=== PATIENT | female | born 1965 | race Caucasian/White ===

== ENCOUNTER 2018-04-26 19:12 | Emergency (ER) | payer MEDICARE, MEDICAID ==
[~2018-04-26] VITALS: Ht 170.2 cm; Wt 92.7 kg
[~2018-04-26 19:12] MED LIST: CYCL-394 PO; DYR50C PO; FENO43CA5 PO; GABA-347 PO; HYDR-565 PO; LISI-600 PO; METH5TAB PO; PHEN-873 PO; POTA25PA2 PO; SIMV20TA5 PO; TRAZADONE PO
[2018-04-26 19:13] VITALS: BP 144/91
== END 2018-04-26 20:30 | disposition home or self-care (01) ==
LOC: ER 19:12
DX: M25.462 Effusion, left knee (principal); E78.00 Pure hypercholesterolemia, unspecified; I10 Essential (primary) hypertension; M19.90 Unspecified osteoarthritis, unspecified site; G89.29 Other chronic pain; Z98.890 Other specified postprocedural states; Z56.0 Unemployment, unspecified; Z79.899 Other long term (current) drug therapy
CPT/HCPCS: 99281

== ENCOUNTER 2023-12-05 14:33 | Inpatient (IN) | payer BC, MEDICAID ==
[~2023-12-05] VITALS: Ht 167.6 cm; Wt 89.5 kg
[~2023-12-05 14:33] MED LIST changes: -FENO43CA5 PO; +FENO43CA8 PO; +HYDR-4353 PO; -HYDR-565 PO; -LISI-600 PO; +LISI20TA28 PO; +PHEN-786 PO; -PHEN-873 PO; +SIMV-42 PO; -SIMV20TA5 PO; +amLODIPine 5mg tablet PO ONE
[2023-12-05 14:54] LABS: BASOPHILS # (AUTO) 0.1 X10'3 (0-0.2); BASOPHILS % (AUTO) 0.7 % (0-1); EOSINOPHILS # (AUTO) 0.2 X10'3 (0-0.9); EOSINOPHILS % (AUTO) 2.9 % (0-6); HEMATOCRIT 45.9 % (35.0-45.0); HEMOGLOBIN 15.2 g/dl (12.0-16.0); LYMPHOCYTES # (AUTO) 2.5 X10'3 (1.1-4.8); LYMPHOCYTES % (AUTO) 29.6 % (21-51); MEAN CORPUSCULAR HEMOGLOBIN 29.8 PG (27.0-31.0); MEAN CORPUSCULAR HGB CONC 33.2 g/dL (33.0-36.5); MEAN CORPUSCULAR VOLUME 89.9 FL (78-98); MEAN PLATELET VOLUME 8.7 FL (7.4-10.4); MONOCYTES # (AUTO) 0.6 X10'3 (0-0.9); MONOCYTES % (AUTO) 7.2 % (2-12); NEUTROPHILS # (AUTO) 5.1 X10'3 (1.8-7.7); NEUTROPHILS % (AUTO) 59.6 % (42-75); PLATELET COUNT 312 X10'3 (140-440); RED CELL DISTRIBUTION WIDTH 13.7 % (11.5-14.5); WHITE BLOOD COUNT 8.5 X10'3 (4.5-11.0)
[2023-12-05 15:12] LABS: BILIRUBIN,TOTAL 0.8 MG/DL (0.1-1.0); BLOOD UREA NITROGEN 17 MG/DL (7-18); CHLORIDE 104 MMOL/L (99-107); TOTAL PROTEIN 8.1 G/DL (6.4-8.2)
[2023-12-05 15:17] LABS: POTASSIUM 3.8 MMOL/L (3.5-5.1)
[2023-12-05] MEDS: diltiazem 5mg/ml 5ml inj. IV ONE ×2 (15:41→17:31)
[2023-12-05] MEDS ORDERED: potassium Cl 40MEQ/1/2NS 520ml 520 ML IV PRN (16:25)
[2023-12-05] MEDS ORDERED: magnesium 2GM in 50ml NS 50 ML IV PRN (16:25)
[2023-12-05] MEDS ORDERED: ondansetron 4mg rapidly disintigrating tab PO PRN (16:25)
[2023-12-05] MEDS ORDERED: magnesium Cl slow-release 64mg tablet PO PRN (16:25)
[2023-12-05] MEDS ORDERED: morphine 2 MG/ML inj. syringe IV PRN (16:25)
[2023-12-05] MEDS ORDERED: ondansetron/PF 4mg/2ml inj IV PRN (16:25)
[2023-12-05] MEDS ORDERED: aminophylline 250mg/10ml inj. IV PRN (16:25)
[2023-12-05] MEDS ORDERED: magnesium 4gm in 100ml NS 100 ML IV PRN (16:25)
[2023-12-05] MEDS ORDERED: bisacodyl 10mg suppository rectal RC PRN (16:25)
[2023-12-05] MEDS ORDERED: magnesium hydroxide 30ml (MOM) UD suspension PO PRN (16:25)
[2023-12-05] MEDS ORDERED: HYDROcodone/acetaminophen 5mg/325mg tablet PO PRN (16:25)
[2023-12-05] MEDS ORDERED: mag hydrox/Alum hydrox/simeth 30ml oral suspension PO PRN (16:25)
[2023-12-05] MEDS ORDERED: acetaminophen 325mg tablet PO PRN ×2 (16:25)
[2023-12-05] MEDS: PERFLUTREN PROTEIN-A MICROSPHR (Optison) 0.22 MG/ML 3ML VIAL IV ONE (16:25)
[2023-12-05] MEDS ORDERED: diphenhydrAMINE 25mg capsule PO PRN (16:25)
[2023-12-05] MEDS ORDERED: nitroGLYCERIN 0.4mg SUBLingual tab SL PRN (16:25)
[2023-12-05] MEDS ORDERED: metoprolol tartrate 1mg/ml inj IV PRN (16:25)
[2023-12-05] MEDS ORDERED: potassium Cl 20 mEq SR tablet PO PRN ×2 (16:25)
[2023-12-05] MEDS ORDERED: aspirin 81mg tab.chew PO ONE (16:35)
[2023-12-05] MEDS ORDERED: iohexol 350MG/ML 100ml bottle IV ONE (16:43)
[2023-12-05 17:02] LABS: HEMOGLOBIN A1C 5.2 % (4.5-6.2)
[2023-12-05] MEDS: diltiazem-NS 100mg/100ml 100 ML IV SCH (17:32)
[2023-12-05] MEDS: normal saline 1000ml 1,000 ML IV SCH (17:33)
[2023-12-05] MEDS: HYDROcodone/acetaminophen 10/325mg tab PO PRN (18:44)
[2023-12-05 19:24] LABS: ALANINE AMINOTRANSFERASE 40 U/L (12-78); ALBUMIN 4.1 G/DL (3.4-5.0); ALKALINE PHOSPHATASE 103 IU/L (46-116); ANION GAP 15 (8-16); BUN/CREATININE RATIO 24.3 (10.0-20.0); CALCIUM 8.8 MG/DL (8.5-10.1); GLUCOSE 125 MG/DL (70-104); SODIUM 140 MMOL/L (135-145); TOTAL CARBON DIOXIDE 21.5 MMOL/L (24-32); eCRCL 80 ML/MIN; eGFR 85 ML/MIN
[2023-12-05 19:29] LABS: MAGNESIUM 2.2 MG/DL (1.5-2.4); PRO BRAIN NATRIURETIC PEPTIDE 821 PG/ML (0-125); THYROID STIMULATING HORMONE 0.34 ulU/ml (0.34-4.50)
[2023-12-05 19:31] LABS: ASPARTATE AMINO TRANSFERASE 25 U/L (10-37)
[2023-12-05 19:45] VITALS: BP 109/72; PULSE 73; RESP 25; TEMP 97.6; O2SAT 98
[2023-12-05] MEDS: K and/or MAG REPLACEMENT MC SCH (20:00)
[2023-12-05] MEDS: atorvastatin 20mg tablet PO SCH (21:06)
[2023-12-05] MEDS: docusate sod 100mg capsule PO SCH (21:06)
[2023-12-05] MEDS: heparin, porcine 5000 units/ml vial SQ SCH (21:06)
[2023-12-05] MEDS: ibuprofen tablet 400 MG TABLET PO ONE (21:06)
[2023-12-05 22:00] VITALS: BP 106/71; PULSE 85; RESP 18; TEMP 97.8; O2SAT 98
[2023-12-06] VITALS (13 sets, daily range): BP systolic 108–130; BP diastolic 63–84; PULSE 83–119; RESP 15–18; TEMP 97.9–98.8; O2SAT 96–98
[2023-12-06] MEDS: morphine 2 MG/ML inj. syringe IV PRN (05:56)
[2023-12-06 07:51] LABS: BASOPHILS % (AUTO) 0.8 % (0-1); EOSINOPHILS # (AUTO) 0.2 X10'3 (0-0.9); EOSINOPHILS % (AUTO) 2.8 % (0-6); HEMOGLOBIN 13.5 g/dl (12.0-16.0); LYMPHOCYTES # (AUTO) 1.9 X10'3 (1.1-4.8); LYMPHOCYTES % (AUTO) 31.3 % (21-51); MEAN CORPUSCULAR HEMOGLOBIN 30.2 PG (27.0-31.0); MEAN CORPUSCULAR HGB CONC 33.8 g/dL (33.0-36.5); MEAN CORPUSCULAR VOLUME 89.3 FL (78-98); MEAN PLATELET VOLUME 8.4 FL (7.4-10.4); MONOCYTES # (AUTO) 0.4 X10'3 (0-0.9); MONOCYTES % (AUTO) 7.4 % (2-12); NEUTROPHILS # (AUTO) 3.4 X10'3 (1.8-7.7); NEUTROPHILS % (AUTO) 57.7 % (42-75); PLATELET COUNT 247 X10'3 (140-440); RED BLOOD COUNT 4.47 X10'6 (4.20-5.60); RED CELL DISTRIBUTION WIDTH 13.7 % (11.5-14.5); WHITE BLOOD COUNT 5.9 X10'3 (4.5-11.0)
[2023-12-06] MEDS: losartan 50mg tablet PO SCH (08:00)
[2023-12-06] MEDS ORDERED: clopidogrel 75mg tablet PO SCH (08:00)
[2023-12-06 08:17] LABS: ALANINE AMINOTRANSFERASE 29 U/L (12-78); ALBUMIN 3.5 G/DL (3.4-5.0); ALBUMIN/GLOBULIN RATIO 1.1 (1.1-1.5); ALKALINE PHOSPHATASE 81 IU/L (46-116); ANION GAP 11 (8-16); ASPARTATE AMINO TRANSFERASE 11 U/L (10-37); BILIRUBIN,TOTAL 0.9 MG/DL (0.1-1.0); BLOOD UREA NITROGEN 14 MG/DL (7-18); BUN/CREATININE RATIO 23.3 (10.0-20.0); CALCIUM 8.6 MG/DL (8.5-10.1); CHLORIDE 108 MMOL/L (99-107); CHOL/HDL RATIO 2.8 (0.00-4.99); CHOLESTEROL 187 MG/DL (0-200); GLUCOSE 103 MG/DL (70-104); HDL CHOLESTEROL 68 MG/DL (35-60); LDL CHOLESTEROL 98 MG/DL (50-100); PHOSPHORUS 3.3 MG/DL (2.3-4.5); POTASSIUM 3.2 MMOL/L (3.5-5.1); SODIUM 144 MMOL/L (135-145); TOTAL CARBON DIOXIDE 25.1 MMOL/L (24-32); TOTAL PROTEIN 6.8 G/DL (6.4-8.2); TRIGLYCERIDES 122 MG/DL (20-135); eCRCL 93 ML/MIN; eGFR > 90 ML/MIN
[2023-12-06] MEDS: diltiazem SR 60mg capsule (twice daily) PO SCH (09:15)
[2023-12-06] MEDS: regadenoson 0.4mg/5ml syringe IV PRN (11:47)
[2023-12-06] MEDS: potassium Cl 20 mEq SR tablet PO STA (13:26)
[2023-12-06] MEDS: diltiazem SR 60mg capsule (twice daily) PO ONE (14:27)
[2023-12-06] MEDS ORDERED: CARCD120C PO (16:08)
[2023-12-06] MEDS ORDERED: APIX5TAB3 PO (16:08)
[2023-12-06] MEDS ORDERED: diltiazem SR 60mg capsule (twice daily) PO SCH (20:00)
== END 2023-12-06 16:57 | disposition home or self-care (01) | DRG 310 ==
LOC: ER 14:34 → ED HOLD 16:40 → PCU 3S 19:15
PROVIDERS: ADMIT Family Medicine; ATTEND Family Medicine
PROC: B32T1ZZ Computerized Tomography (CT Scan) of Left Pulmonary Artery using Low Osmolar Contrast (ICD-10-PCS; principal; 2023-12-05)
PROC: B3201ZZ Computerized Tomography (CT Scan) of Thoracic Aorta using Low Osmolar Contrast (ICD-10-PCS; 2023-12-05)
PROC: B32S1ZZ Computerized Tomography (CT Scan) of Right Pulmonary Artery using Low Osmolar Contrast (ICD-10-PCS; 2023-12-05)
PROC: 4A02XM4 Measurement of Cardiac Total Activity, External Approach (ICD-10-PCS; 2023-12-06)
PROC: 3E033HZ Introduction of Radioactive Substance into Peripheral Vein, Percutaneous Approach (ICD-10-PCS; 2023-12-06)
DX: I48.91 Unspecified atrial fibrillation (principal); E78.00 Pure hypercholesterolemia, unspecified; F41.9 Anxiety disorder, unspecified; F10.90 Alcohol use, unspecified, uncomplicated; I45.10 Unspecified right bundle-branch block; F17.290 Nicotine dependence, other tobacco product, uncomplicated; I10 Essential (primary) hypertension; Z56.0 Unemployment, unspecified; Z98.51 Tubal ligation status; Z88.8 Allergy status to other drugs, medicaments and biological substances; Z79.899 Other long term (current) drug therapy
CPT/HCPCS: 36415; 71045; 71275; 78452; 80053; 80061; 83036; 83605; 83735; 83880; 84100; 84443; 84484; 85025; 85379; 87040; 87081; 93005; 93017; 93306; 99291; A9500; G0378; J1644; J2270; J2785; J3490; J7030; Q9967

== ENCOUNTER 2024-03-03 12:03 | Day surgery (SDC) | payer BC, MEDICAID ==
[2024-02-28 12:39] LABS: BASOPHILS % (AUTO) 0.7 % (0-1); EOSINOPHILS # (AUTO) 0.2 X10'3 (0-0.9); EOSINOPHILS % (AUTO) 2.8 % (0-6); HEMOGLOBIN 13.4 g/dl (12.0-16.0); LYMPHOCYTES # (AUTO) 2.1 X10'3 (1.1-4.8); LYMPHOCYTES % (AUTO) 29.3 % (21-51); MEAN CORPUSCULAR HGB CONC 33.6 g/dL (33.0-36.5); MEAN CORPUSCULAR VOLUME 86.5 FL (78-98); MEAN PLATELET VOLUME 8.9 FL (7.4-10.4); MONOCYTES # (AUTO) 0.5 X10'3 (0-0.9); MONOCYTES % (AUTO) 7.2 % (2-12); NEUTROPHILS # (AUTO) 4.3 X10'3 (1.8-7.7); PLATELET COUNT 262 X10'3 (140-440); RED BLOOD COUNT 4.62 X10'6 (4.20-5.60); RED CELL DISTRIBUTION WIDTH 13.5 % (11.5-14.5); WHITE BLOOD COUNT 7.2 X10'3 (4.5-11.0)
[2024-02-28 12:53] LABS: APTT 28 SECONDS (22-32); PROTHROMBIN TIME 10.8 SECONDS (9.0-12.0)
[2024-02-28 12:54] LABS: ANION GAP 7 (8-16); BLOOD UREA NITROGEN 11 MG/DL (7-18); BUN/CREATININE RATIO 13.4 (10.0-20.0); CALCIUM 8.8 MG/DL (8.5-10.1); CHLORIDE 105 MMOL/L (99-107); CREATININE 0.82 MG/DL (0.40-0.90); GLUCOSE 92 MG/DL (70-104); POTASSIUM 3.5 MMOL/L (3.5-5.1); SODIUM 141 MMOL/L (135-145); TOTAL CARBON DIOXIDE 29.5 MMOL/L (24-32); eGFR 71 ML/MIN
[2024-03-03] VITALS (11 sets, daily range): BP systolic 108–145; BP diastolic 76–94; PULSE 78–110; RESP 11–20; TEMP 98.2; O2SAT 96–100
[~2024-03-03] VITALS: Ht 167.6 cm; Wt 88.9 kg
[~2024-03-03 12:03] MED LIST changes: +APIX5TAB3 PO; +CARCD120C PO; -CYCL-394 PO; -DYR50C PO; -FENO43CA8 PO; -GABA-347 PO; -LISI20TA28 PO; -METH5TAB PO; -PHEN-786 PO; -SIMV-42 PO; -TRAZADONE PO; -amLODIPine 5mg tablet PO ONE
[2024-03-03] MEDS ORDERED: DOCU100C40 PO (12:46)
[2024-03-03] MEDS ORDERED: HYDR-3972 PO (12:46)
[2024-03-03] MEDS ORDERED: OXYC10TA57 PO (12:46)
[2024-03-03] MEDS ORDERED: APIX5TAB5 PO (12:46)
[2024-03-03] MEDS ORDERED: DILT120T3 PO (12:46)
[2024-03-03] MEDS ORDERED: FURO40TA4 PO (12:46)
[2024-03-03] MEDS ORDERED: ATOR20TA PO (12:46)
[2024-03-03] MEDS ORDERED: FLEC50TA28 PO (12:46)
[2024-03-03] MEDS: MIDAZolam 1mg/ml 10ml vial IV ONE (13:14)
[2024-03-03] MEDS: fentaNYL/PF 50MCG/1 ML 2ML syringe IV ONE (13:14)
[2024-03-03] MEDS: normal saline 1000ml 1,000 ML IV SCH (13:14)
== END 2024-03-03 14:25 | disposition home or self-care (01) ==
LOC: SSTAY O 12:03
PROVIDERS: ATTEND Student in an Organized Health Care Education/Training Program
DX: I48.91 Unspecified atrial fibrillation (principal); I49.1 Atrial premature depolarization; I45.10 Unspecified right bundle-branch block; I10 Essential (primary) hypertension; E78.00 Pure hypercholesterolemia, unspecified; Z79.01 Long term (current) use of anticoagulants; Z79.891 Long term (current) use of opiate analgesic; Z79.899 Other long term (current) drug therapy; Z88.8 Allergy status to other drugs, medicaments and biological substances
CPT/HCPCS: 36415; 80048; 85025; 85610; 85730; 92960; 93005; J2250; J3010; J7030; A4620

== ENCOUNTER 2025-08-18 12:11 | Emergency (ER) | payer BC, MEDICAID ==
[~2025-08-18] VITALS: Ht 167.6 cm; Wt 98.5 kg
[~2025-08-18 12:11] MED LIST changes: -APIX5TAB3 PO; +APIX5TAB5 PO; +ATOR20TA PO; -CARCD120C PO; +DILT120T3 PO; +DOCU100C40 PO; +FLEC50TA28 PO; +FURO40TA4 PO; +HYDR-3972 PO; +OXYC10TA57 PO
[2025-08-18 12:19] VITALS: TEMP 97.8
[2025-08-18 12:40] LABS: MEAN PLATELET VOLUME 9.1 FL (7.4-10.4); RED CELL DISTRIBUTION WIDTH 14.1 % (11.5-14.5)
--- NOTE | 2025-08-18 12:47 | RADIOLOGY REPORT ---
CHEST RADIOGRAPH Indication: CP Technique: Single frontal view of the chest was obtained Comparison: DI CHEST,SINGLE VIEW on DOS: 12/05/23, CHEST,SINGLE VIEW on DOS: 04/14/19 FINDINGS: Lines and Tubes: None Lungs: No focal consolidation. Pleura: No effusion. No pneumothorax. Cardiomediastinal contours: Unremarkable Bones: No acute osseous abnormality. IMPRESSION: No acute cardiopulmonary disease.
[2025-08-18 12:52] LABS: CREATININE 0.74 MG/DL (0.40-0.90); PRO BRAIN NATRIURETIC PEPTIDE 119 PG/ML (0-125); TOTAL CARBON DIOXIDE 29.1 MMOL/L (24-32); eCRCL 74 ML/MIN; eGFR 80 ML/MIN
--- NOTE | 2025-08-18 13:05 | ELECTROCARDIOGRAPH REPORT ---
[facility] Test Date: 2025-08-18 Test Time: 12:13:57 Pat Name: ALEXA JIMENEZ Department: EMERGENCY ROOM Room: Gender: F Applications Engineer: EMELIA : [id number] Requested By: CASPER MORILLO Order Number: [id number] Reading MD: Measurements Intervals [place] Rate: 118 P: 0 SC: 0 QRS: -40 QRSD: 113 T: 66 QT: 343 QTc: 481 Interpretive Statements Atrial fibrillation Ventricular premature complex Incomplete RBBB and LAFB Abnormal R-wave progression, late transition Baseline wander in lead(s) II,aVR Please click the below link to view image of tracing.
--- NOTE | 2025-08-18 14:59 | Physician Documentation ---
History of Present Illness ~ Chief Complaint: Palpitations Stated Complaint: RAPID HR Time Seen by MD: 15:27 Primary Medical Doctor: Kendall Freeman [facility] This is a 60-year-old female with a history of AFib who presents with feeling of palpitations and shortness of breath, patient reports that she occasionally experiences palpitations though palpitations today were more intense and lasted longer than normal. Patient reports that she goes in and out of AFib. Patient reports that she is on medications for AFib. Patient reports symptoms have resolved. Day of Onset: Aug 18, 2025 Medication Reconciliation Allergies: Coded Allergies: meperidine HCl (Verified Allergy, Intermediate, SOB, 08/18/25) Scheduled Apixaban (Eliquis), 1 TAB PO BID, (Reported) Atorvastatin Calcium* (Lipitor*), 1 TAB PO HS, (Reported) Diltiazem HCl (Diltiazem HCl), 1 TAB PO Q12H, (Reported) Docusate Sodium (Docusate Sodium), 1 CAP PO HS, (Reported) Flecainide Acetate (Flecainide Acetate), 1 TAB PO Q12H, (Reported) Furosemide 40 MG (Lasix), 1 TAB PO DAILY, (Reported) Hydrocodone Bit/Acetaminophen (G[place]ard 10-325 Tablet), 1 TAB PO Q6H, (Reported) Oxycodone HCl (Oxycontin), 1 TAB PO Q12H, (Reported) Scheduled PRN Hydrocodone Bit/Acetaminophen (Hydrocodon-Acetaminophn 10-325 tablet), 1 TAB PO QID PRN PRN for pain, (Reported) Miscellaneous Medications Potassium Chloride (Klor-Con), 25 MEQ PO, (Reported) Past Medical History Past Medical History: Headache, *CARDIOVASCULAR*, High Cholesterol, Hypertension, Arthritis, Chronic Back Pain, Osteoarthritis, Anxiety Past Surgical History: orthopedic surgeries, tubal ligation Other Past Surgical History: ablation Alcohol Use: Occasionally Drug Use: none Lives with: S/O Lives In: Home Occupation: unemployed Review of Systems ROS As stated above in the HPI, otherwise all systems are reviewed and negative. Physical Exam Vital Signs: Temperature: 97.8, Source: Temporal, Heart Rate: 110, Respiratory Rate: 18, BP: 163/98, Pulse Oximetry: 96, Weight: 98.500 Physical Exam VITALS: Reviewed and as above. GENERAL: Alert, nontoxic appearing, no apparent distress. HEENT: RESPIRATORY: No increased work of breathing, no respiratory distress, speaking in full clear sentences, clear lung sounds in all [place] CHEST: CV: Regular rate and rhythm no murmur BACK: GI: MUSCULOSKELETAL: SKIN: NEURO: PSYCH: Progress Results/Orders Results/Orders Vital Signs 08/18/25 08/18/25 08/18/25 08/18/25 12:19 15:28 15:43 16:02 Temp 97.8 Pulse 110 68 74 Resp 18 18 18 B/P (MAP) 163/98 144/87 (106) 122/84 Pulse Ox 96 97 100 O2 Flow Rate 0 Laboratory Tests Test 08/18/25 12:17 08/18/25 15:05 08/18/25 15:18 White Blood Count 6.2 Red Blood Count 4.74 Hemoglobin 13.6 Hematocrit 41.1 Mean Corpuscular Volume 86.6 Mean Corpuscular Hemoglobin 28.7 Mean Corpuscular Hemoglobin Concent 33.2 Red Cell Distribution Width 14.1 Platelet Count 241 Mean Platelet Volume 9.1 Neutrophils (%) (Auto) 44.8 Lymphocytes (%) (Auto) 42.8 Monocytes (%) (Auto) 8.0 Eosinophils (%) (Auto) 3.7 Basophils (%) (Auto) 0.7 Neutrophils # (Auto) 2.8 Lymphocytes # (Auto) 2.7 Monocytes # (Auto) 0.5 Eosinophils # (Auto) 0.2 Basophils # (Auto) 0.0 CBC Comment Sodium Level 140 Potassium Level 3.8 Chloride Level 101 Carbon Dioxide Level 29.1 Anion Gap 10 Blood Urea Nitrogen 12 Creatinine 0.74 Estimated GFR/1.73 m2 80 BUN/Creatinine Ratio 16.2 Glucose Level 104 Calcium Level 9.0 Troponin I High Sensitivity 4 12 Pro-B-Type Natriuretic Peptide 119 Albumin 4.0 Chemistry Comments Troponin I High Sens Percent Delta 200 Troponin I Hi Sens Absolute Change 8 Urine Specimen Description Cln catch midstream Urine Color Straw Urine Clarity Clear Urine pH 7.0 Urine Specific [place] <=1.005 Urine Protein Negative Urine Glucose (UA) Negative Urine Ketones Negative Urine Occult Blood Trace-intact Urine Nitrite Negative Urine Bilirubin Negative Urine Urobilinogen 0.2 Urine Leukocyte Esterase Trace H Urine RBC 0-2 Urine WBC 0-4 Urine Squamous Epithelial Cells Few Urine Bacteria Few Urine Culture Indicated Not ind Volume Urine Centrifuged 10 ml Urine Comment Medical Decision Making Additional information obtaine: N/A Findings MSE performed in triage and patient returned to ED lobby by nursing staff to await available ED room Patient's laboratory values are overall reassuring. She did have a mild jump in her troponin from 4-12 however she remains asymptomatic and she has had normal sinus rhythm throughout her stay here in the ED. I feel comfortable discharging her at this time with a close follow up with her hull molder's. did offer hospitalization and further evaluation however patient declined Differential Dx:Considerations: Include: angina / IN, atrial dysrhythmia, atrial fibrillation, atrial flutter, MAT, PACs, PSVT, sinus tachycardia, WPW, 1st degree AV block, 2nd degree AVB-type 1, 2nd degree AVB-type 2, 3rd degree AV block, PVCs, torsades de pointes, ventricular fibrillation, ventricular tachycardia, other Differential Dx:Considerations: Unlikely anxiety/panic attack, Unlikely digoxin toxicity, Unlikely electrolyte disorder, Unlikely heart failure, Unlikely hyperthyroidism, Unlikely hyperventilation, Unlikely hypoxia, Unlikely pacemaker malfunction, Unlikely pulmonary embolus, Unlikely renal failure, Unlikely other Departure Disposition: 01 HOME / SELF CARE / HOMELESS Impression: Primary Impression: Palpitations Additional Impression: Irregular heartbeat Discharge Instructions: Atrial Fibrillation, [id number] Additional Instructions: Sure to follow up with the your hull molder's for further evaluation Referrals: NO PRIMARY CARE PROVIDER (PCP) Signature Scribe Signature: er Attestation: Scribed for Ernie Torres Np by Ernie Jack NP . 08/18/25 15:51 JORDI NESBITT Aug 18, 2025 14:59 ERNIE TORRES NP Aug 18, 2025 15:53
[2025-08-18 15:56] LABS: LEUKOCYTE ESTERASE ,URINE TRACE (Neg); NITRITES, URINE NEGATIVE (Neg); OCCULT BLOOD,URINE TRACE-INTACT (Neg)
[2025-08-18 16:02] VITALS: BP 122/84; PULSE 74; RESP 18; O2SAT 100
[2025-08-18 16:14] LABS: UA COLLECTION TYPE CLN CATCH MIDSTREAM
[2025-08-18 16:15] LABS: SQUAMOUS EPITHELIAL CELL,UR FEW /LPF (FEW)
== END 2025-08-18 16:03 | disposition home or self-care (01) ==
LOC: ER 12:11
DX: R00.2 Palpitations (principal); R06.02 Shortness of breath; E78.00 Pure hypercholesterolemia, unspecified; I10 Essential (primary) hypertension; I48.91 Unspecified atrial fibrillation; I49.9 Cardiac arrhythmia, unspecified; M19.90 Unspecified osteoarthritis, unspecified site; Z88.8 Allergy status to other drugs, medicaments and biological substances; Z98.51 Tubal ligation status
CPT/HCPCS: 36415; 71045; 80048; 81001; 83880; 84484; 85025; 93005; 99285